=== PATIENT | female | born 1975 | race Caucasian/White ===

== ENCOUNTER 2017-07-13 11:16 | Emergency (ER) | payer OTHER ==
[2017-07-13] MEDS ORDERED: IPRATROPIUM/ALBUTEROL 3 ML NEB INH STA (12:20)
[2017-07-13] MEDS ORDERED: HYDROcod/ACETAM 5/325 MG TABLET PO STA (12:20)
--- NOTE | 2017-07-13 12:23 | ED Physician Documentation ---
PD HPI HEAD INJURY - Stated complaint Stated Complaint: FELL/HIT HEAD - Chief complaint Chief Complaint: Trauma Hd/Nk - History obtained from History obtained from: Patient, Friend - History of Present Illness Mechanism of head injury: Other (She has been sick for about a week with cough that is worsening. She was on her porch today and had a dizzy spell and fell forward down 3 steps hitting her left forehead on the gravel. There was no loss of consciousness but she does have an increasing headache and mild nausea. She also has posterior neck pain.) Review of Systems Constitutional: denies: Fever, Chills Ears: reports: Ear pain Nose: reports: Rhinorrhea / runny nose Throat: denies: Sore throat Cardiac: reports: Chest pain / pressure (from cough). denies: Palpitations Respiratory: reports: Dyspnea, Cough GI: denies: Abdominal Pain PD PAST MEDICAL HISTORY - Past Medical History Cardiovascular: Hypertension Musculoskeletal: Rheumatoid arthritis - Past Surgical History Past Surgical History: No - Present Medications Home Medications: Ambulatory Orders Medication Instructions Recorded Confirmed Atenolol [Tenormin] 50 mg PO DAILY 01/16/13 06/09/15 Citalopram [CeleXA] 40 mg PO DAILY 01/16/13 06/09/15 Albuterol Sulfate [Proventil Hfa 1 - 2 puffs IH Q4H PRN #1 07/13/17 Inhaler] hfa.aer.ad Etanercept [Enbrel Mini] 07/13/17 HYDROcod/ACETAM 5/325 [Olmitz 5/325] 1 - 2 ea PO Q6H PRN #15 tablet 07/13/17 Leflunomide 10 mg PO 07/13/17 Levothyroxine [Synthroid] mcg PO QDAC 07/13/17 Ondansetron HCl [Zofran] 4 mg PO Q6H PRN #10 tablet 07/13/17 Tumeric 07/13/17 cloNIDine [Catapres] 0.2 mg PO ONCE 07/13/17 07/13/17 - Allergies Allergies/Adverse Reactions: Allergies Allergy/AdvReac Type Severity Reaction Status Date / Time No Known Drug Allergies Allergy Verified 07/13/17 11:32 - Social History Does the pt smoke?: No Smoking Status: Never smoker Does the pt drink ETOH?: No Does the pt have substance abuse?: No - Immunizations Immunizations are current?: Yes - POLST Patient has POLST: No PD ED PE NORMAL - Vitals Vital signs reviewed: Yes - General General: Alert and oriented X 3, No acute distress - HEENT HEENT: PERRL, EOMI, Ears normal, Pharynx benign, Other (There is an abrasion on the left forehead with an underlying hematoma, not tender.) - Neck Neck: Other (She is tender to the mid C-spine) - Cardiac Cardiac: RRR, No murmur - Respiratory Respiratory: Other (Diminished throughout, especially the left base, nonlabored) - Abdomen Abdomen: Non tender - Back Back: No CVA TTP - Extremities Extremities: No deformity, No tenderness to palpate, Normal ROM s pain - Neuro Neuro: Alert and oriented X 3 Eye Opening: Spontaneous Motor: Obeys Commands Verbal: Oriented GCS Score: 15 - Psych Psych: Normal mood, Normal affect Results - Vitals Vitals: Vital Signs - 24 hr 07/13/17 07/13/17 07/13/17 11:28 12:37 14:16 Temperature 37.2 C Heart Rate 71 80 73 Respiratory 16 16 16 Rate Blood Pressure 119/69 131/82 H O2 Saturation 100 99 Oxygen O2 Source Room air - Rads (name of study) CT Head and Cspine Radiology: EMP read contemporaneously (Degenerative changes in the neck and an abnormality in the sella turcica which was discussed with the patient and she was given a copy of the CAT scan read to follow-up and getting an outpatient MRI.) 2v cest Radiology: EMP read contemporaneously (NAD) PD MEDICAL DECISION MAKING - ED course ED course: Sounds like she has had several days of a viral syndrome causing some wheezing and cough and felt weak today and fell without loss of consciousness hitting her head. Imaging as shown and feeling much better after a DuoNeb and a Vicodin. She was given a copy of the CAT scan read as she will need an nonemergent MRI of her pituitary gland. Departure - Departure Disposition: 01 Home, Self Care Clinical Impression: Cough, Abnormal CT scan, head Concussion Qualifiers: Encounter type: initial encounter Loss of consciousness presence/duration: without LOC Qualified Code(s): S06.0X0A - Concussion without loss of consciousness, initial encounter Neck strain Qualifiers: Encounter type: initial encounter Qualified Code(s): S16.1XXA - Strain of muscle, fascia and tendon at neck level, initial encounter Fall Qualifiers: Encounter type: initial encounter Qualified Code(s): W19.XXXA - Unspecified fall, initial encounter Condition: Good Record reviewed to determine appropriate education?: Yes Instructions: ED Sprain Strain Neck Prescriptions: Albuterol Sulfate [Proventil Hfa Inhaler] 1 - 2 puffs IH Q4H PRN #1 hfa.aer.ad PRN Reason: Cough HYDROcod/ACETAM 5/325 [Olmitz 5/325] 1 - 2 ea PO Q6H PRN #15 tablet PRN Reason: Pain Ondansetron HCl [Zofran] 4 mg PO Q6H PRN #10 tablet PRN Reason: Nausea / Vomiting Comments: As discussed, the CAT scan of your head shows an abnormality or near the pituitary gland which is unlikely to be significant, but make sure to follow-up with your primary care physician and discuss an MRI of your pituitary. Return if worse. Your blood pressure was elevated today on check into the emergency department. This does not mean that you have hypertension, it is a common phenomenon to come to the emergency department and have elevated blood pressure. I recommend that you see your primary care physician within the week to have it rechecked when you are feeling better.
--- NOTE | 2017-07-13 14:11 | XRAY Report ---
EXAM: CHEST RADIOGRAPHY EXAM DATE: 07/13/2017 01:38 PM. CLINICAL HISTORY: Head/neck inj, cough. COMPARISON: None. TECHNIQUE: 2 views. FINDINGS: Lungs/Pleura: No focal opacities evident. No pleural effusion. No pneumothorax. Normal volumes. Mediastinum: Heart and mediastinal contours are unremarkable. Other: None. IMPRESSION: Normal 2-view chest radiography. [facility] Referring Provider Line: [phone] SITE ID: [id number]
--- NOTE | 2017-07-13 14:14 | CT Preliminary Report ---
Exam: CT CERVICAL SPINE W/O IMPRESSION: 1. No acute bony abnormality. 2. Mild central spinal canal stenosis at C3-C4. 3. Moderate degenerative changes both TMJs. 4. Please see separately dictated head CT report as regards to the enlarged sella turcica. [facility] SITE ID: [id number]
[2017-07-13 14:17] VITALS: BP 131/82
--- NOTE | 2017-07-13 14:33 | CT Preliminary Report ---
Exam: CT HEAD W/O IMPRESSION: 1. No acute intracranial abnormality nor bleed. 2. Enlarged sella with internal contents not entirely characteristic of classic "empty sella" syndrom e such as seen with an incompetent diaphragma sella. Appearance raises the possibility of epidermoid, cystic craniopharyngioma, less likely arachnoid/neuroenteric cyst. Dedicated MR of the pituitary re commended on a nonemergent basis. [facility] The above findings were discussed with Dr Crain by Dr. Chikis Ulrich at 14:20 Hrs on 07/13/17. SITE ID: [id number]
--- NOTE | 2017-07-13 14:34 | CT Report ---
EXAM: CT CERVICAL SPINE WITHOUT CONTRAST DATE: 07/13/2017 01:30 PM. HISTORY: Fall with head trauma. Pain. COMPARISONS: None. TECHNIQUE: Thin-section axial images were acquired of the cervical spine without contrast. Post-proce ssing: Coronal and sagittal reformats. Other: None. In accordance with CT protocol optimization, one or more of the following dose reduction techniques w ere utilized for this exam: automated exposure control, adjustment of mA and/or KV based on patient s ize, or use of iterative reconstructive technique. FINDINGS: Alignment: 3 mm degenerative anterior subluxation C3 on C4. Bones: No fracture or bone lesion. Interspace Levels/Facets: Multilevel mild degenerative changes with the only level of spinal stenosis, mild at the C3-C4 level. Congenital fusion C2-C3. Multilevel moderate bony neural foraminal compromise. Musculature: Normal. No fatty atrophy. Other: The paravertebral and prevertebral soft tissues are unremarkable. The lung apices are clear. Moderate degenerative changes both TMJs. IMPRESSION: 1. No acute bony abnormality. 2. Mild central spinal canal stenosis at C3-C4. 3. Moderate degenerative changes both TMJs. 4. Please see separately dictated head CT report as regards to the enlarged sella turcica. [facility] Referring Provider Line: [phone] SITE ID: [id number]
--- NOTE | 2017-07-13 14:36 | CT Report ---
EXAM: CT HEAD EXAM DATE: 07/13/2017 01:12 PM. CLINICAL HISTORY: Fall today with anterior head trauma. Pain. COMPARISON: None. TECHNIQUE: Multiaxial CT images were obtained from the foramen magnum to the vertex. Reformats: Coron al. IV contrast: None. In accordance with CT protocol optimization, one or more of the following dose reduction techniques w ere utilized for this exam: automated exposure control, adjustment of mA and/or KV based on patient s ize, or use of iterative reconstructive technique. FINDINGS: Parenchyma: No intra-axial blood products. Luther-white junction is normal. Sella is enlarged with chronic erosive changes involving the dorsum, floor and anterior clinoids with some erosion of the sella tuberculum as well. Internal contents low density, roughly CSF but suggest ion of mild inhomogeneity. Sellar dimensions measure 2.0 x 2.1 x by 1.9 cm. Pituitary stalk very tiny or truncated. Optic chiasm in normal position. Superior margin of the sellar contents asymmetric, 19 .9 mm on the left, 17 mm on the right. No associated calcifications nor discrete fat densities. No discrete pituitary tissue evident. Extraaxial Spaces: Normal for age. No subdural or epidural collections identified. Ventricles: Normal in size and position. Sinuses and Orbits: Imaged paranasal sinuses, orbits, and mastoids show no significant abnormality. Bones: No evidence of a fracture. Other: Mild edema left forehead. IMPRESSION: 1. No acute intracranial abnormality nor bleed. 2. Enlarged sella with internal contents not entirely characteristic of classic "empty sella" syndrom e, such as seen with an incompetent diaphragma sella. Appearance raises the possibility of epidermoid , cystic craniopharyngioma, less likely arachnoid/neuroenteric cyst. Dedicated MR of the pituitary re commended on a nonemergent basis. [facility] The above findings were discussed with Dr Crain by Dr. Chikis Ulrich at 14:20 Hrs on 07/13/17. Referring Provider Line: [phone] SITE ID: [id number]
== END 2017-07-13 14:56 | disposition home or self-care (01) ==
LOC: ED 11:16
DX: S06.0X0A Concussion without loss of consciousness, initial encounter (principal); S16.1XXA Strain of muscle, fascia and tendon at neck level, initial encounter; W17.89XA Other fall from one level to another, initial encounter; Y92.019 Unspecified place in single-family (private) house as the place of occurrence of the external cause; R93.0 Abnormal findings on diagnostic imaging of skull and head, not elsewhere classified; R05 Cough; M06.9 Rheumatoid arthritis, unspecified
CPT/HCPCS: 70450; 71046; 72125; 94640; 99283; 99284; A9270; J7620